=== PATIENT | female | born 1995 | race Caucasian/White ===

== ENCOUNTER 2019-12-30 15:27 | Emergency (ER) | payer SELFPAY ==
[~2019-12-30] VITALS: Wt 86.2 kg
[~2019-12-30 15:27] MED LIST: PENICILLIN VK500 MG PO; TYLENOL W/CODEI1 TA4 PO; ZOFRAN4 MG PO
[2019-12-30 16:12] LABS: BACTERIA 4+; BILIRUBIN NEGATIVE (NEGATIVE); BLOOD NEGATIVE (NEGATIVE); CLARITY CLOUDY (CLEAR); COLOR YELLOW (YELLOW); GLUCOSE NEGATIVE (NEGATIVE); KETONE 1+ (NEGATIVE); LEUKO ESTERASE 3+ (NEGATIVE); NITRITE NEGATIVE (NEGATIVE); PH 8.5 (5.0-9.0); UROBILINOGEN 0.2 E.U./dl (0.2-1.0); WBC TNTC wbc/hpf (0-5)
[2019-12-30 16:13] LABS: MUCOUS 1+
[2019-12-30] MEDS ORDERED: PRENATAL TABLE1 EAC2 PO (16:20)
[2019-12-30] MEDS ORDERED: CEPHALEXIN500 M1 PO (16:20)
[2019-12-30] MEDS ORDERED: REGLAN10 M1 PO (16:20)
== END 2019-12-30 16:22 | disposition home or self-care (01) ==
LOC: ED 15:27
PROVIDERS: Nurse Practitioner Family
DX: O23.41 Unspecified infection of urinary tract in pregnancy, first trimester (principal); O21.9 Vomiting of pregnancy, unspecified; Z3A.09 9 weeks gestation of pregnancy

== ENCOUNTER → 2020-01-13 | Outpatient (CLI) | payer OTHER ==
[~2020-01-13] MED LIST changes: +CEPHALEXIN500 M1 PO; +PRENATAL TABLE1 EAC2 PO; +REGLAN10 M1 PO
== END | disposition home or self-care (01) ==
LOC: US 14:00
DX: Z34.91 Encounter for supervision of normal pregnancy, unspecified, first trimester (principal); Z3A.13 13 weeks gestation of pregnancy

== ENCOUNTER 2020-03-12 16:28 | Emergency (ER) | payer OTHER ==
[~2020-03-12] VITALS: Wt 87.1 kg
[2020-03-12 18:40] LABS: BILIRUBIN NEGATIVE; BLOOD NEGATIVE (NEGATIVE); CLARITY CLEAR (CLEAR); COLOR YELLOW (YELLOW); GLUCOSE NEGATIVE; KETONE NEGATIVE; LEUKO ESTERASE 2+ (NEGATIVE); NITRITE NEGATIVE (NEGATIVE); PH 6.5 (4.5-8.0); SPECIFIC GRAVITY < 1.005 (1.001-1.030); UROBILINOGEN 0.2 E.U./dl (0.0-1.0)
[2020-03-12 18:47] LABS: BACTERIA 2+; EPITHELIAL CELLS TNTC; RBC 0-2 rbc/hpf (0-2); WBC 21-30 wbc/hpf (0-5)
[2020-03-12] MEDS ORDERED: KEFLEX500 M1 PO (18:53)
== END 2020-03-12 19:02 | disposition home or self-care (01) ==
LOC: ED 16:28
PROVIDERS: Nurse Practitioner
DX: O23.42 Unspecified infection of urinary tract in pregnancy, second trimester (principal); Z04.1 Encounter for examination and observation following transport accident; Z3A.21 21 weeks gestation of pregnancy; V47.6XXA Car passenger injured in collision with fixed or stationary object in traffic accident, initial encounter; Y93.89 Activity, other specified; Y92.89 Other specified places as the place of occurrence of the external cause; Y99.8 Other external cause status

== ENCOUNTER → 2020-04-11 | Outpatient (CLI) | payer OTHER ==
[~2020-04-11] MED LIST changes: +KEFLEX500 M1 PO
== END | disposition home or self-care (01) ==
LOC: US 07:30
PROVIDERS: ATTEND Nurse Practitioner Women's Health
DX: O32.1XX0 Maternal care for breech presentation, not applicable or unspecified (principal); Z3A.25 25 weeks gestation of pregnancy

== ENCOUNTER → 2020-05-12 | Outpatient (CLI) | payer OTHER | END | disposition home or self-care (01) | LOC: D 14:43 | PROVIDERS: ATTEND Obstetrics & Gynecology | DX: O24.410 Gestational diabetes mellitus in pregnancy, diet controlled (principal); Z79.899 Other long term (current) drug therapy; Z91.19 Patient's noncompliance with other medical treatment and regimen ==

== ENCOUNTER → 2020-05-30 | Outpatient (CLI) | payer OTHER | END | disposition home or self-care (01) | LOC: US 14:00 | PROVIDERS: ATTEND Obstetrics & Gynecology | DX: Z34.03 Encounter for supervision of normal first pregnancy, third trimester (principal); Z3A.30 30 weeks gestation of pregnancy ==

== ENCOUNTER 2020-06-25 10:18 | Emergency (ER) | payer OTHER ==
[~2020-06-25] VITALS: Wt 97.1 kg
== END 2020-06-25 12:10 | disposition short-term general hospital (02) ==
LOC: ED 10:18
DX: Z34.93 Encounter for supervision of normal pregnancy, unspecified, third trimester (principal); Z79.899 Other long term (current) drug therapy; Z3A.38 38 weeks gestation of pregnancy

== ENCOUNTER → 2020-06-30 | Outpatient (CLI) | payer OTHER | END | disposition home or self-care (01) | LOC: US 14:54 | PROVIDERS: ATTEND Nurse Practitioner Women's Health | DX: O24.415 Gestational diabetes mellitus in pregnancy, controlled by oral hypoglycemic drugs (principal); Z3A.37 37 weeks gestation of pregnancy ==

== ENCOUNTER → 2020-07-20 | Outpatient (CLI) | payer OTHER | END | disposition home or self-care (01) | LOC: US 12:30 | PROVIDERS: ATTEND Obstetrics & Gynecology | DX: M79.605 Pain in left leg (principal) ==

== ENCOUNTER 2024-05-15 22:40 | Emergency (ER) | payer OTHER ==
[~2024-05-15] VITALS: Wt 99.8 kg
[2024-05-16] MEDS ORDERED: MELOXICAM15 MG PO (00:38)
== END 2024-05-16 01:10 | disposition home or self-care (01) ==
LOC: ED 22:40
DX: S93.402A Sprain of unspecified ligament of left ankle, initial encounter (principal); W01.0XXA Fall on same level from slipping, tripping and stumbling without subsequent striking against object, initial encounter; Y93.89 Activity, other specified; Y92.89 Other specified places as the place of occurrence of the external cause; Y99.8 Other external cause status